=== PATIENT | male | born 1990 | race African-American/Black ===

== ENCOUNTER 2019-04-22 13:09 | Emergency (ER) | payer MEDICAID, OTHER ==
[~2019-04-22] VITALS: Ht 182.9 cm; Wt 68.2 kg
[~2019-04-22 13:09] MED LIST: ALBU8.5H8 IH; NO MEDS
[2019-04-22] MEDS ORDERED: DiphenhydrAMINE HCL 50 MG/ML VIAL IM ONE (13:45)
[2019-04-22] MEDS ORDERED: PredniSONE 20 MG TABLET PO ONE (13:45)
[2019-04-22 14:20] VITALS: BP 126/79
== END 2019-04-22 14:26 | disposition home or self-care (01) ==
LOC: EMS 13:11
DX: L50.0 Allergic urticaria (principal)
CPT/HCPCS: 96372; 99283; J1200; J7512

== ENCOUNTER 2024-09-28 12:11 | Emergency (ER) | payer MEDICAID, OTHER ==
[~2024-09-28] VITALS: Ht 180.3 cm; Wt 79.4 kg
[~2024-09-28 12:11] MED LIST changes: -NO MEDS
[2024-09-28 12:13] VITALS: TEMP 98.2
[2024-09-28] MEDS: BACITRACIN 0.9 GM PACKET OINTMENT TP ONE (12:19)
[2024-09-28 12:20] VITALS: BP 161/92
[2024-09-28 13:22] VITALS: PULSE 64; RESP 21; O2SAT 95
[2024-09-28] MEDS: ALBUTEROL SULFATE HFA 90 MCG/PUFF 8 GM INHALER IH ONE (13:22)
[2024-09-28] MEDS: LIDOCAINE 1%/EPI 1:200,000/PF 10 ML VIAL SQ ONE (13:29)
== END 2024-09-28 15:33 | disposition home or self-care (01) ==
LOC: EMS 12:11
DX: S61.512A Laceration without foreign body of left wrist, initial encounter (principal); J45.909 Unspecified asthma, uncomplicated; F12.90 Cannabis use, unspecified, uncomplicated; F14.90 Cocaine use, unspecified, uncomplicated; X99.1XXA Assault by knife, initial encounter; Y93.89 Activity, other specified; Y92.89 Other specified places as the place of occurrence of the external cause; Y99.8 Other external cause status
CPT/HCPCS: 99283; 94640; 12002; J3490; J3535

== ENCOUNTER 2024-10-03 17:15 | Emergency (ER) | payer MEDICAID, OTHER ==
[~2024-10-03] VITALS: Ht 182.9 cm; Wt 77.3 kg
[2024-10-03 17:20] VITALS: BP 128/78; PULSE 108; RESP 18; TEMP 98; O2SAT 99
[2024-10-03] MEDS ORDERED: CLIN300C58 PO (17:20)
[2024-10-03] MEDS: ACETAMINOPHEN 500 MG TABLET PO ONE (18:34)
[2024-10-03] MEDS: BACITRACIN 28 GM OINTMENT TP ONE (18:34)
[2024-10-03] MEDS: CEPHALEXIN MONOHYDRATE 500 MG CAPSULE PO ONE (18:34)
[2024-10-03] MEDS: SULFAMETHOX/TRIMETH DS 800-160 MG/TABLET PO ONE (18:34)
[2024-10-03] MEDS ORDERED: SULF-261 PO (18:56)
[2024-10-03] MEDS ORDERED: CEPH-558 PO (18:56)
== END 2024-10-03 19:16 | disposition home or self-care (01) ==
LOC: EMS 17:15
DX: S61.512D Laceration without foreign body of left wrist, subsequent encounter (principal); J45.909 Unspecified asthma, uncomplicated; F12.90 Cannabis use, unspecified, uncomplicated; F14.90 Cocaine use, unspecified, uncomplicated; Z79.899 Other long term (current) drug therapy; Z91.010 Allergy to peanuts; Z91.018 Allergy to other foods; Z91.013 Allergy to seafood; X58.XXXD Exposure to other specified factors, subsequent encounter
CPT/HCPCS: 99284; Z7502; Z7610